=== PATIENT | male | born 1945 | race Caucasian/White ===

== ENCOUNTER 2020-09-06 11:43 | Emergency (ER) | payer MEDICARE, BC ==
[2020-09-06 11:53] VITALS: TEMP 98.6
[2020-09-06] MEDS ORDERED: ONDANSETRON 4 MG/2 ML VIAL IVP STA (12:35)
[2020-09-06] MEDS ORDERED: SODIUM CHLORIDE 0.9% 1,000 ML IV STA (12:35)
[2020-09-06 13:14] VITALS: RESP 18
[2020-09-06 13:26] LABS: Basophils # (A) 0.1 k/uL (0-0.2); Basophils % (A) 1 %; Eosinophils # (A) 0.2 k/uL (0-0.7); Eosinophils % (A) 1 %; HGB 15.4 gm/dL (13.0-17.5); Lymphocytes % (A) 8 %; MCH 29.6 pg (25.0-35.0); MCHC 32.1 g/dL (31.0-37.0); MCV 92.1 fL (80.0-100.0); Mean Platelet Volume 7.2; Monocytes # (A) 0.9 k/uL (0-1.0); Monocytes % (A) 6 %; Neutrophils # (A) 11.6 k/uL (1.3-7.7); Neutrophils % (A) 83 %; Platelet Count 347 k/uL (150-450); RBC 5.21 m/uL (4.30-5.90); RDW 13.3 % (11.5-15.5); WBC 13.9 k/uL (3.8-10.6)
--- NOTE | 2020-09-06 13:32 | ED ---
Nausea/Vomiting/Diarrhea HPI - General Chief complaint: Nausea/Vomiting/Diarrhea Stated complaint: Weakness/diarrhea Time Seen by Provider: 09/06/20 12:07 Source: patient, family Mode of arrival: wheelchair Limitations: no limitations - History of Present Illness Initial comments: Patient is a 74-year-old male with past medical history of chronic back pain recently placed on buprenorphen who presents to the emergency department for nausea and diarrhea. Patient states that his symptoms started approximately one week ago and have been getting progressively worse. He has had generalized body aches. He was seen at [facility] Wednesday for same complaint. Evaluation was performed and was negative. He was sent home. No medication ch anges other then he stopped the buprenorphen 2 days ago. Yesterday the patient began having diarrhea. States he had a bowel movement once per hour. Denies bloody diarrhea. Denies any sick contacts as other symptoms. No tainted foods. Denies a cough or chest pain. Has mild generalized abdominal pain. No history with colitis or inflammatory bowel disease. No other alleviating or modifying f actors - Related Data Home Medications Medication Instructions Recorded Confirmed Buprenorphine HCl [Belbuca] 300 mcg BC BID 09/06/20 09/06/20 Buprenorphine [Butrans 20 MCG/HOUR] 1 patch TRANSDERM Q7D 09/06/20 09/06/20 Clopidogrel [Plavix] 75 mg PO DAILY 09/06/20 09/06/20 Melatonin Gummies 30 mg PO HS 09/06/20 09/06/20 Metoprolol Tartrate [Lopressor] 50 mg PO BID 09/06/20 09/06/20 NIFEdipine [Procardia XL] 90 mg PO DAILY 09/06/20 09/06/20 Pravastatin Sodium [Pravachol] 80 mg PO HS 09/06/20 09/06/20 Sertraline [Zoloft] 100 mg PO BID 09/06/20 09/06/20 buPROPion HCL [Wellbutrin SR] 150 mg PO Q12H 09/06/20 09/06/20 busPIRone HCl [Buspar] 30 mg PO BID 09/06/20 09/06/20 hydrALAZINE HCL [Apresoline] 100 mg PO BID 09/06/20 09/06/20 traZODone HCL [TraZODone HCl] 50 mg PO HS 09/06/20 09/06/20 Previous Rx's Medication Instructions Recorded Dicyclomine [Bentyl] 20 mg PO TID PRN #30 tablet 09/06/20 Allergies Allergy/AdvReac Type Severity Reaction Status Date / Time atorvastatin [From Lipitor] Allergy muscle Verified 09/06/20 13:23 pains Review of Systems ROS Statement: Those systems with pertinent positive or pertinent negative responses have been documented in the HPI. ROS Other: All systems not noted in ROS Statement are negative. Past Medical History Past Medical History: Hypertension, Renal Disease History of Any Multi-Drug Resistant Organisms: None Reported Past Surgical History: Back Surgery Past Psychological History: Depression Smoking Status: Former smoker Past Alcohol Use History: None Reported Past Drug Use History: None Reported General Exam Limitations: no limitations Course Vital Signs 09/06/20 09/06/20 09/06/20 11:47 13:12 15:52 Temperature 98.6 F 98.6 F Pulse Rate 76 67 77 Respiratory 20 18 18 Rate Blood Pressure 165/83 154/82 125/82 O2 Sat by Pulse 95 96 94 L Oximetry Medical Decision Making - Medical Decision Making Upon arrival patient is placed into room 7. A thorough history and physical exam was performed. Peripheral IV is established her patient is given a liter bolus of normal saline, 4 mg of Zofran. I did recommend laboratory studies, urinalysis and stool studies. Patient is unable to have a bowel movement while in the emergency department. Laboratory studies demonstrate a creatinine of 1.6. Nothing previous to compare to. White blood cell count of 13.9. Urinalysis is negative. CT the patient's abdomen and pelvis demonstrates signs of enteritis with fluid-filled loops of small bowel. Some thickening present within the duodenum. Chest x-ray was also performed which demonstrates some scattered mild peribronchial cuffing which could reflect bronchitis or asthma. The results are discussed with the patient. States he does feel improved at this time. He is given a dose of Bentyl for abdominal cramping. I did recommend hospital admission however the patient would prefer to go home at this time. The patient will follow up with his primary care doctor in 2-4 days. Ret urn to the emergency department for any new or worsening symptoms. Encourage by mouth intake. The patient understood this. He was then discharged home in stable condition - Lab Data Result diagrams: 09/06/20 13:16 09/06/20 13:16 Lab Results 09/06/20 09/06/20 09/06/20 Range/Units 13:16 13:16 13:16 WBC 13.9 H (3.8-10.6) k/uL RBC 5.21 (4.30-5.90) m/uL Hgb 15.4 (13.0-17.5) gm/dL Hct 48.0 (39.0-53.0) % MCV 92.1 (80.0-100.0) fL MCH 29.6 (25.0-35.0) pg MCHC 32.1 (31.0-37.0) g/dL RDW 13.3 (11.5-15.5) % Plt Count 347 (150-450) k/uL Neutrophils % 83 % Lymphocytes % 8 % Monocytes % 6 % Eosinophils % 1 % Basophils % 1 % Neutrophils # 11.6 H (1.3-7.7) k/uL Lymphocytes # 1.0 (1.0-4.8) k/uL Monocytes # 0.9 (0-1.0) k/uL Eosinophils # 0.2 (0-0.7) k/uL Basophils # 0.1 (0-0.2) k/uL Sodium 136 L (137-145) mmol/L Potassium 4.3 (3.5-5.1) mmol/L Chloride 107 (98-107) mmol/L Carbon Dioxide 20 L (22-30) mmol/L Anion Gap 9 mmol/L BUN 26 H (9-20) mg/dL Creatinine 1.64 H (0.66-1.25) mg/dL Est GFR (CKD-EPI)AfAm 48 (>60 ml/min/1.73 sqM) Est GFR (CKD-EPI)NonAf 41 (>60 ml/min/1.73 sqM) Glucose 111 H (74-99) mg/dL Plasma Lactic Acid Ugo 0.9 (0.7-2.0) mmol/L Calcium 9.4 (8.4-10.2) mg/dL Magnesium 2.3 (1.6-2.3) mg/dL Total Bilirubin 0.5 (0.2-1.3) mg/dL AST 25 (17-59) U/L ALT 17 (4-49) U/L Alkaline Phosphatase 87 (38-126) U/L Creatine Kinase 88 (55-170) U/L Total Protein 6.8 (6.3-8.2) g/dL Albumin 4.0 (3.5-5.0) g/dL Lipase 105 (23-300) U/L Urine Color Urine Appearance (Clear) Urine pH (5.0-8.0) Ur Specific [employer] (1.001-1.035) Urine Protein (Negative) Urine Glucose (UA) (Negative) Urine Ketones (Negative) Urine Blood (Negative) Urine Nitrite (Negative) Urine Bilirubin (Negative) Urine Urobilinogen (<2.0) mg/dL Ur Leukocyte Esterase (Negative) 09/06/20 Range/Units 14:36 WBC (3.8-10.6) k/uL RBC (4.30-5.90) m/uL Hgb (13.0-17.5) gm/dL Hct (39.0-53.0) % MCV (80.0-100.0) fL MCH (25.0-35.0) pg MCHC (31.0-37.0) g/dL RDW (11.5-15.5) % Plt Count (150-450) k/uL Neutrophils % % Lymphocytes % % Monocytes % % Eosinophils % % Basophils % % Neutrophils # (1.3-7.7) k/uL Lymphocytes # (1.0-4.8) k/uL Monocytes # (0-1.0) k/uL Eosinophils # (0-0.7) k/uL Basophils # (0-0.2) k/uL Sodium (137-145) mmol/L Potassium (3.5-5.1) mmol/L Chloride (98-107) mmol/L Carbon Dioxide (22-30) mmol/L Anion Gap mmol/L BUN (9-20) mg/dL Creatinine (0.66-1.25) mg/dL Est GFR (CKD-EPI)AfAm (>60 ml/min/1.73 sqM) Est GFR (CKD-EPI)NonAf (>60 ml/min/1.73 sqM) Glucose (74-99) mg/dL Plasma Lactic Acid Ugo (0.7-2.0) mmol/L Calcium (8.4-10.2) mg/dL Magnesium (1.6-2.3) mg/dL Total Bilirubin (0.2-1.3) mg/dL AST (17-59) U/L ALT (4-49) U/L Alkaline Phosphatase (38-126) U/L Creatine Kinase (55-170) U/L Total Protein (6.3-8.2) g/dL Albumin (3.5-5.0) g/dL Lipase (23-300) U/L Urine Color Yellow Urine Appearance Clear (Clear) Urine pH 6.5 (5.0-8.0) Ur Specific [employer] 1.017 (1.001-1.035) Urine Protein Trace H (Negative) Urine Glucose (UA) Negative (Negative) Urine Ketones Negative (Negative) Urine Blood Negative (Negative) Urine Nitrite Negative (Negative) Urine Bilirubin Negative (Negative) Urine Urobilinogen <2.0 (<2.0) mg/dL Ur Leukocyte Esterase Negative (Negative) Disposition Clinical Impression: Dehydration, Diarrhea, Enteritis Disposition: HOME SELF-CARE Condition: Stable Instructions (If sedation given, give patient instructions): Acute Diarrhea (ED) Additional Instructions: Please follow-up with your primary care doctor in 2-4 days. Save a sample of your stool and take it to your doctor for testing. Increase fluid intake. Return to the emergency room for any new or worsening symptoms Prescriptions: Dicyclomine [Bentyl] 20 mg PO TID PRN #30 tablet PRN Reason: Diarrhea Is patient prescribed a controlled substance at d/c from ED?: No Referrals: Chaka Thomas DO [Primary Care Provider] - 1-2 days Time of Disposition: 15:40
[2020-09-06 13:37] LABS: Calcium 9.4 mg/dL (8.4-10.2); Magnesium 2.3 mg/dL (1.6-2.3); Potassium 4.3 mmol/L (3.5-5.1); Total Bilirubin 0.5 mg/dL (0.2-1.3); Total Protein 6.8 g/dL (6.3-8.2)
[2020-09-06 14:50] LABS: Appearance,Urine Clear (Clear); Bilirubin,Urine Negative (Negative); Blood,Urine Negative (Negative); Color,Urine Yellow; Glucose,Urine (UA) Negative (Negative); Ketones,Urine Negative (Negative); Leukocyte Esterase,Urine Negative (Negative); Nitrite,Urine Negative (Negative); PH, Urine 6.5 (5.0-8.0); Protein,Urine Trace (Negative); Specific Gravity,Urine 1.017 (1.001-1.035); Urobilinogen,Urine <2.0 mg/dL (<2.0)
--- NOTE | 2020-09-06 15:07 | XR ---
EXAMINATION TYPE: XR chest 2V DATE OF EXAM: 09/06/2020 COMPARISON: None HISTORY: 74-year-old male cough and pain TECHNIQUE: PA and lateral views FINDINGS: Heart upper limits of normal in size. Aorta and pulmonary vasculature within normal limits. Mild inte rstitial prominence as a chronic appearance. No bozena consolidation or pleural effusion. There is mil d peribronchial cuffing scattered throughout. IMPRESSION: Some scattered mild peribronchial cuffing could reflect bronchitis or asthma. Otherwise, no acute pro cess seen.
--- NOTE | 2020-09-06 15:08 | CT ---
EXAMINATION TYPE: CT abdomen pelvis w con DATE OF EXAM: 09/06/2020 COMPARISON: None HISTORY: Weakness with pelvic pain. CT DLP: 1251.5 mGycm Automated exposure control for dose reduction was used. TECHNIQUE: Helical acquisition of images from the lung bases through the pelvis have been completed. CONTRAST: Performed without Oral Contrast and with IV Contrast, patient injected with 80 mL of Isovue 300. FINDINGS: There are coronary artery calcifications. LUNG BASES: No significant abnormality is appreciated. Probable calcified nodule present medially in the right lower lobe on axial image #4, there is some emphysematous changes present, no pleural or pe ricardial effusion AORTA: Atheromatous changes are present with luminal plaque, mural calcification. LIVER/GB: Patient is post cholecystectomy.. PANCREAS: No significant abnormality is seen. SPLEEN: No significant abnormality is seen. ADRENALS: No significant abnormality is seen. KIDNEYS: No significant abnormality is seen. REPRODUCTIVE ORGANS: No significant abnormality is seen BOWEL: There are fluid-filled loops of small bowel present. Some thickening present within the duode num, distended loop of duodenum also noted. FREE AIR: No Free Air visible. ASCITES: None visible. PELVIC ADENOPATHY: None visualized. RETROPERITONEAL ADENOPATHY: No Retroperitoneal Adenopathy visible. URINARY BLADDER: Urinary bladder is not well-distended, there is wall thickening, difficult to exclud e cystitis or mucosal lesion OSSEOUS STRUCTURES: Postop changes are noted status post lumbar fusion L3-S1, intervertebral spacing blocks present at L5-S1, L4-5. There is streak artifact present. IMPRESSION: CORRELATE FOR ENTERITIS. ADDITIONAL FINDINGS ABOVE.
[2020-09-06] MEDS ORDERED: DICYCLOMINE 10 MG CAP PO STA (15:36)
[2020-09-06 15:54] VITALS: BP 125/82; PULSE 77
== END 2020-09-06 15:56 | disposition home or self-care (01) ==
LOC: EC 11:43
DX: K52.9 Noninfective gastroenteritis and colitis, unspecified (principal); E86.0 Dehydration; F32.9 Major depressive disorder, single episode, unspecified; I10 Essential (primary) hypertension; Z79.899 Other long term (current) drug therapy; Z88.8 Allergy status to other drugs, medicaments and biological substances; Z87.891 Personal history of nicotine dependence
CPT/HCPCS: 51798; 36415; 80053; 82550; 83605; 83690; 83735; 85025; 81003; 71046; 74177; 99285; 96374; 96361 ×2; J2405; Q9967

== ENCOUNTER 2020-09-07 08:09 | Observation (INO) | payer MEDICARE, BC ==
[2020-09-07] MEDS ORDERED: PANTOPRAZOLE 40 MG/10 ML VIAL IVP STA (08:34)
[2020-09-07] MEDS ORDERED: DICYCLOMINE 10 MG/ML 2 ML AMP IM STA (08:34)
[2020-09-07] MEDS ORDERED: SODIUM CHLORIDE 0.9% 1,000 ML IV STA ×2 (08:34)
--- NOTE | 2020-09-07 08:38 | ED ---
General Adult HPI - General Chief complaint: Nausea/Vomiting/Diarrhea Stated complaint: nausea/diarrhea Time Seen by Provider: 09/07/20 08:14 Source: patient, family, RN notes reviewed, old records reviewed Mode of arrival: wheelchair Limitations: no limitations - History of Present Illness Initial comments: Patient is a pleasant 74-year-old male presenting to the emergency Department with diarrhea. Onset of symptoms was a week ago. Symptoms have been waxing and waning. Patient did go to emergency department Wednesday and . Patient again went to the emergency department here yesterday. Patient did have computed tomography scan done showing enteritis. Patient states symptoms worsened again last night. Patient has had several episodes of diarrhea again. Patient has diffuse myalgias. Patient does have abdominal cramping as well. Patient has decreased appetite and is tolerating limited oral intake. Patient has some nausea without vomiting. No history of similar symptoms chronically. No fevers. No recent antibiotic use - Related Data Home Medications Medication Instructions Recorded Confirmed Buprenorphine HCl [Belbuca] 300 mcg BC BID 09/06/20 09/06/20 Buprenorphine [Butrans 20 MCG/HOUR] 1 patch TRANSDERM Q7D 09/06/20 09/06/20 Clopidogrel [Plavix] 75 mg PO DAILY 09/06/20 09/06/20 Melatonin Gummies 30 mg PO HS 09/06/20 09/06/20 Metoprolol Tartrate [Lopressor] 50 mg PO BID 09/06/20 09/06/20 NIFEdipine [Procardia XL] 90 mg PO DAILY 09/06/20 09/06/20 Pravastatin Sodium [Pravachol] 80 mg PO HS 09/06/20 09/06/20 Sertraline [Zoloft] 100 mg PO BID 09/06/20 09/06/20 buPROPion HCL [Wellbutrin SR] 150 mg PO Q12H 09/06/20 09/06/20 busPIRone HCl [Buspar] 30 mg PO BID 09/06/20 09/06/20 hydrALAZINE HCL [Apresoline] 100 mg PO BID 09/06/20 09/06/20 traZODone HCL [TraZODone HCl] 50 mg PO HS 09/06/20 09/06/20 Previous Rx's Medication Instructions Recorded Dicyclomine [Bentyl] 20 mg PO TID PRN #30 tablet 09/06/20 Allergies Allergy/AdvReac Type Severity Reaction Status Date / Time atorvastatin [From Lipitor] Allergy muscle Verified 09/07/20 08:19 pains Review of Systems ROS Statement: Those systems with pertinent positive or pertinent negative responses have been documented in the HPI. ROS Other: All systems not noted in ROS Statement are negative. Constitutional: Denies: fever Eyes: Denies: eye pain ENT: Denies: ear pain Respiratory: Denies: cough Cardiovascular: Denies: chest pain Endocrine: Reports: fatigue Gastrointestinal: Reports: nausea, diarrhea. Denies: vomiting Genitourinary: Denies: dysuria Musculoskeletal: Denies: back pain Skin: Denies: rash Neurological: Denies: weakness Past Medical History Past Medical History: COPD, CVA/TIA, Hyperlipidemia, Hypertension, Renal Disease Additional Past Medical History / Comment(s): back pain History of Any Multi-Drug Resistant Organisms: None Reported Past Surgical History: Back Surgery Additional Past Surgical History / Comment(s): hemorroidectomy Past Psychological History: Depression Smoking Status: Current every day smoker Past Alcohol Use History: None Reported Past Drug Use History: None Reported General Exam Limitations: no limitations General appearance: alert Head exam: Present: normocephalic Eye exam: Present: normal appearance ENT exam: Present: mucous membranes dry Neck exam: Present: normal inspection Respiratory exam: Present: normal lung sounds bilaterally Cardiovascular Exam: Present: regular rate, normal rhythm GI/Abdominal exam: Present: soft, hyperactive bowel sounds. Absent: distended, tenderness, guarding, rebound, rigid, pulsatile mass Extremities exam: Present: normal inspection Neurological exam: Present: alert Psychiatric exam: Present: normal affect, normal mood Skin exam: Present: normal color Course Vital Signs 09/07/20 08:14 Temperature 98.3 F Pulse Rate 75 Respiratory 18 Rate Blood Pressure 137/73 O2 Sat by Pulse 96 Oximetry Medical Decision Making - Medical Decision Making Patient reevaluated and not feeling much better. Patient and family updated on results and plan. Dr. Kay has been paged for admission covering for hospital call. Case was discussed with Dr. Bowie, who will admit. - Lab Data Result diagrams: 09/07/20 08:42 09/07/20 08:42 Lab Results 09/07/20 09/07/20 Range/Units 08:42 08:42 WBC 14.9 H (3.8-10.6) k/uL RBC 5.11 (4.30-5.90) m/uL Hgb 15.3 (13.0-17.5) gm/dL Hct 46.9 (39.0-53.0) % MCV 91.7 (80.0-100.0) fL MCH 30.0 (25.0-35.0) pg MCHC 32.7 (31.0-37.0) g/dL RDW 13.4 (11.5-15.5) % Plt Count 350 (150-450) k/uL Neutrophils % 83 % Lymphocytes % 9 % Monocytes % 5 % Eosinophils % 1 % Basophils % 1 % Neutrophils # 12.3 H (1.3-7.7) k/uL Lymphocytes # 1.4 (1.0-4.8) k/uL Monocytes # 0.8 (0-1.0) k/uL Eosinophils # 0.1 (0-0.7) k/uL Basophils # 0.1 (0-0.2) k/uL Sodium 137 (137-145) mmol/L Potassium 4.1 (3.5-5.1) mmol/L Chloride 108 H (98-107) mmol/L Carbon Dioxide 21 L (22-30) mmol/L Anion Gap 8 mmol/L BUN 22 H (9-20) mg/dL Creatinine 1.52 H (0.66-1.25) mg/dL Est GFR (CKD-EPI)AfAm 52 (>60 ml/min/1.73 sqM) Est GFR (CKD-EPI)NonAf 45 (>60 ml/min/1.73 sqM) Glucose 124 H (74-99) mg/dL Calcium 9.4 (8.4-10.2) mg/dL Total Bilirubin 0.5 (0.2-1.3) mg/dL AST 25 (17-59) U/L ALT 16 (4-49) U/L Alkaline Phosphatase 83 (38-126) U/L Total Protein 6.7 (6.3-8.2) g/dL Albumin 3.9 (3.5-5.0) g/dL Amylase 57 (30-110) U/L Lipase 98 (23-300) U/L Disposition Clinical Impression: Diarrhea, Dehydration Disposition: ADMITTED IP TO THIS [facility] Is patient prescribed a controlled substance at d/c from ED?: No Decision Time: 09:29
[2020-09-07 08:50] LABS: Basophils # (A) 0.1 k/uL (0-0.2); Basophils % (A) 1 %; Eosinophils # (A) 0.1 k/uL (0-0.7); Eosinophils % (A) 1 %; HCT 46.9 % (39.0-53.0); HGB 15.3 gm/dL (13.0-17.5); Lymphocytes # (A) 1.4 k/uL (1.0-4.8); Lymphocytes % (A) 9 %; MCHC 32.7 g/dL (31.0-37.0); MCV 91.7 fL (80.0-100.0); Monocytes # (A) 0.8 k/uL (0-1.0); Monocytes % (A) 5 %; Neutrophils # (A) 12.3 k/uL (1.3-7.7); Neutrophils % (A) 83 %; Platelet Count 350 k/uL (150-450); RBC 5.11 m/uL (4.30-5.90); RDW 13.4 % (11.5-15.5); WBC 14.9 k/uL (3.8-10.6)
[2020-09-07 09:01] LABS: Albumin 3.9 g/dL (3.5-5.0); Calcium 9.4 mg/dL (8.4-10.2); Potassium 4.1 mmol/L (3.5-5.1); Total Bilirubin 0.5 mg/dL (0.2-1.3); Total Protein 6.7 g/dL (6.3-8.2)
[2020-09-07] MEDS ORDERED: ONDANSETRON 4 MG/2 ML VIAL IVP PRN (09:29)
[2020-09-07] MEDS ORDERED: NALOXONE 0.4 MG/ML 1 ML VIAL IV PRN (09:29)
[2020-09-07] MEDS ORDERED: SODIUM CHLORIDE 0.9% 1,000 ML IV SCH (09:30)
[2020-09-07 10:07] VITALS: RESP 20
[2020-09-07 10:47] VITALS: BP 163/73; PULSE 73; TEMP 98
[2020-09-07] MEDS ORDERED: SODIUM CHLORIDE 0.9% 1,000 ML IV ONE ×2 (13:33→13:42)
--- NOTE | 2020-09-07 13:53 | P.HPIM ---
History of Present Illness 74-year-old male presenting to the emergency Department with diarrhea. Onset of symptoms was a week ago. Symptoms have been waxing and waning. Patient did go to emergency department Wednesday and . Patient again went to the emergency department here yesterday. Patient did have computed tomography scan done showing enteritis. Patient states symptoms worsened again last night. Patient has had several episodes of diarrhea again. Patient has diffuse myalgias. Patient does have abdominal cramping as well. Patient has decreased appetite and is tolerating limited oral intake. Patient has some nausea without vomiting. No history of similar symptoms chronically. No fevers. No recent antibiotic use. Patient is found to be in acute renal failure which improved with IV fluids but still has elevated serum creatinine. Patient's symptoms of diarrhea nausea vomiting resolved it appears to have viral gastroenteritis clinically doing well will be discharged today as he wanted to go home after giving him another bolus of IV fluids. Review of Systems REVIEW OF SYSTEMS: CONSTITUTIONAL: No fever, no malaise, no fatigue. HEENT: No recent visual problems or hearing problems. Denied any sore throat. CARDIOVASCULAR: No chest pain, orthopnea, PND, no palpitations, no syncope. PULMONARY: No shortness of breath, no cough, no hemoptysis. GASTROINTESTINAL: As mentioned in HPI NEUROLOGICAL: No headaches, no weakness, no numbness. HEMATOLOGICAL: Denies any bleeding or petechiae. GENITOURINARY: Denies any burning micturition, frequency, or urgency. MUSCULOSKELETAL/RHEUMATOLOGICAL: Denies any joint pain, swelling, or any muscle pain. ENDOCRINE: Denies any polyuria or polydipsia. The rest of the 14-point review of systems is negative. Past Medical History Past Medical History: CVA/TIA, Hyperlipidemia, Hypertension, Renal Disease Additional Past Medical History / Comment(s): back pain History of Any Multi-Drug Resistant Organisms: None Reported Past Surgical History: Back Surgery Additional Past Surgical History / Comment(s): hemorroidectomy Past Anesthesia/Blood Transfusion Reactions: No Reported Reaction Past Psychological History: Anxiety, Depression Smoking Status: Current every day smoker Past Alcohol Use History: None Reported Past Drug Use History: None Reported Medications and Allergies Home Medications Medication Instructions Recorded Confirmed Type Clopidogrel [Plavix] 75 mg PO HS 09/06/20 09/07/20 History Metoprolol Tartrate [Lopressor] 50 mg PO BID 09/06/20 09/07/20 History NIFEdipine [Procardia XL] 90 mg PO DAILY 09/06/20 09/07/20 History Pravastatin Sodium [Pravachol] 80 mg PO HS 09/06/20 09/07/20 History Sertraline [Zoloft] 100 mg PO BID 09/06/20 09/07/20 History buPROPion HCL [Wellbutrin SR] 150 mg PO BID 09/06/20 09/07/20 History busPIRone HCl [Buspar] 30 mg PO BID 09/06/20 09/07/20 History hydrALAZINE HCL [Apresoline] 100 mg PO BID 09/06/20 09/07/20 History traZODone HCL 50 mg PO HS 09/06/20 09/07/20 History Buprenorphine HCl [Belbuca] 300 mcg BC 09/07/20 History Omeprazole Magnesium [PriLOSEC OTC] 20 mg PO DAILY 09/07/20 09/07/20 History Allergies Allergy/AdvReac Type Severity Reaction Status Date / Time atorvastatin [From Lipitor] Allergy muscle Verified 09/07/20 10:07 pains Physical Exam Vitals: Vital Signs Temp Pulse Pulse Resp BP BP Pulse Ox 09/07/20 10:46 98.0 F 73 163/73 96 09/07/20 10:06 82 20 111/67 95 09/07/20 08:14 98.3 F 75 18 137/73 96 Intake and Output 09/06/20 09/07/20 09/07/20 22:59 06:59 14:59 Other: # Voids 1 # Bowel Movements 1 Weight 87.09 kg PHYSICAL EXAMINATION: GENERAL: The patient is alert and oriented x3, not in any acute distress. Well developed, well nourished. HEENT: Pupils are round and equally reacting to light. EOMI. No scleral icterus. No conjunctival pallor. Normocephalic, atraumatic. No pharyngeal erythema. No thyromegaly. CARDIOVASCULAR: S1 and S2 present. No murmurs, rubs, or gallops. PULMONARY: Chest is clear to auscultation, no wheezing or crackles. ABDOMEN: Soft, nontender, nondistended, normoactive bowel sounds. No palpable organomegaly. MUSCULOSKELETAL: No joint swelling or deformity. EXTREMITIES: No cyanosis, clubbing, or pedal edema. NEUROLOGICAL: Gross neurological examination did not reveal any focal deficits. SKIN: No rashes. Results CBC & Chem 7: 09/07/20 08:42 09/07/20 08:42 Labs: Abnormal Lab Results - Last 24 Hours (Table) 09/07/20 09/07/20 Range/Units 08:42 08:42 WBC 14.9 H (3.8-10.6) k/uL Neutrophils # 12.3 H (1.3-7.7) k/uL Chloride 108 H (98-107) mmol/L Carbon Dioxide 21 L (22-30) mmol/L BUN 22 H (9-20) mg/dL Creatinine 1.52 H (0.66-1.25) mg/dL Glucose 124 H (74-99) mg/dL Thrombosis Risk Factor Assmnt - Choose All That Apply Each Factor Represents 1 point: Obesity (BMI >25) Each Risk Factor Represents 2 Points: Age 61-74 years Thrombosis Risk Factor Assessment Total Risk Factor Score: 3 Thrombosis Risk Factor Assessment Level: Moderate Risk Assessment and Plan Plan: -Nausea vomiting diarrhea secondary to viral gastroenteritis symptoms resolved at this time -Severe dehydration and acute renal failure secondary to dehydration and prerenal azotemia secondary to dehydration received IV fluids will give him one more bolus of IV fluids and after that patient will be discharged -Hyperlipidemia Hypertension -CVAT in the past -Depression -Nicotine abuse: Counseling was provided
--- NOTE | 2020-09-07 13:58 | P.DS ---
Providers Date of admission: 09/07/20 09:29 Attending physician: Waldo Kay Primary care physician: Chaka Thomas Hospital Course: Please refer to HPI for further details Plan - Discharge Summary Discharge Rx Participant: No New Discharge Prescriptions: Continue traZODone HCL 50 mg PO HS busPIRone HCl [Buspar] 30 mg PO BID buPROPion HCL [Wellbutrin SR] 150 mg PO BID Sertraline [Zoloft] 100 mg PO BID Pravastatin Sodium [Pravachol] 80 mg PO HS Metoprolol Tartrate [Lopressor] 50 mg PO BID Clopidogrel [Plavix] 75 mg PO HS hydrALAZINE HCL [Apresoline] 100 mg PO BID NIFEdipine [Procardia XL] 90 mg PO DAILY Omeprazole Magnesium [PriLOSEC OTC] 20 mg PO DAILY Buprenorphine HCl [Belbuca] 300 mcg BC Discharge Medication List Clopidogrel [Plavix] 75 mg PO HS 09/06/20 [History] Metoprolol Tartrate [Lopressor] 50 mg PO BID 09/06/20 [History] NIFEdipine [Procardia XL] 90 mg PO DAILY 09/06/20 [History] Pravastatin Sodium [Pravachol] 80 mg PO HS 09/06/20 [History] Sertraline [Zoloft] 100 mg PO BID 09/06/20 [History] buPROPion HCL [Wellbutrin SR] 150 mg PO BID 09/06/20 [History] busPIRone HCl [Buspar] 30 mg PO BID 09/06/20 [History] hydrALAZINE HCL [Apresoline] 100 mg PO BID 09/06/20 [History] traZODone HCL 50 mg PO HS 09/06/20 [History] Buprenorphine HCl [Belbuca] 300 mcg 09/07/20 [History] Omeprazole Magnesium [PriLOSEC OTC] 20 mg PO DAILY 09/07/20 [History] Follow up Appointment(s)/Referral(s): Chaka Thomas DO [Primary Care Provider] - 3 Days Discharge Disposition: HOME SELF-CARE
[2020-09-07] MEDS ORDERED: CLOPIDOGREL 75 MG TAB PO SCH (21:00)
[2020-09-07] MEDS ORDERED: PRAVASTATIN SODIUM 80 MG TAB PO SCH (21:00)
[2020-09-07] MEDS ORDERED: traZODone HCL 50 MG TAB PO SCH (21:00)
[2020-09-07] MEDS ORDERED: buPROPion SR 150 MG TABLET.ER PO SCH (21:00)
[2020-09-07] MEDS ORDERED: METOPROLOL TARTRATE 50 MG TAB PO SCH (21:00)
[2020-09-07] MEDS ORDERED: SERTRALINE 100 MG TAB PO SCH (21:00)
[2020-09-07] MEDS ORDERED: busPIRone HCl 10 MG TAB PO SCH (21:00)
[2020-09-07] MEDS ORDERED: hydrALAZINE HCL 50 MG TAB PO SCH (21:00)
[2020-09-08] MEDS ORDERED: PANTOPRAZOLE 40 MG TABLET PO SCH (07:30)
[2020-09-08] MEDS ORDERED: NIFEdipine XL 90 MG TAB.ER.24 PO SCH (09:00)
[2020-09-08] MEDS ORDERED: PANTOPRAZOLE 40 MG/10 ML VIAL IV SCH (09:00)
== END 2020-09-07 15:07 | disposition home or self-care (01) ==
LOC: EC 08:09 → 1SOBS 09:29
PROVIDERS: ADMIT Hospitalist; ATTEND Hospitalist
DX: E86.0 Dehydration (principal); N17.9 Acute kidney failure, unspecified; A08.4 Viral intestinal infection, unspecified; E78.5 Hyperlipidemia, unspecified; F17.200 Nicotine dependence, unspecified, uncomplicated; F32.9 Major depressive disorder, single episode, unspecified; F41.9 Anxiety disorder, unspecified; I10 Essential (primary) hypertension; J44.9 Chronic obstructive pulmonary disease, unspecified; Z79.02 Long term (current) use of antithrombotics/antiplatelets; Z79.899 Other long term (current) drug therapy; Z86.73 Personal history of transient ischemic attack (TIA), and cerebral infarction without residual deficits
CPT/HCPCS: 96361; 96372; 96374; 99285; 36415; 80053; 82150; 83690; 85025; G0378; J0500; C9113

== ENCOUNTER 2022-01-13 12:39 | Emergency (ER) | payer MEDICARE, BC ==
[2022-01-13 13:02] VITALS: BP 135/70; PULSE 66; RESP 16; TEMP 97.9
--- NOTE | 2022-01-13 13:40 | XR ---
EXAMINATION TYPE: XR chest 2V DATE OF EXAM: 01/13/2022 COMPARISON: Chest x-ray September 06, 2020 HISTORY: Weakness. TECHNIQUE: Frontal and lateral views of the chest are obtained. FINDINGS: There is mild chronic parenchymal change without suspicious focal air space opacity, pleur al effusion, or pneumothorax seen. The cardiac silhouette size remains within normal limits. The o sseous structures are intact. IMPRESSION: Chronic changes without acute pulmonary process.
[2022-01-13] MEDS ORDERED: MORPHINE SULFATE 2 MG/ML SYRINGE IVP STA (14:54)
[2022-01-13] MEDS ORDERED: ONDANSETRON 4 MG/2 ML VIAL IVP STA (14:54)
[2022-01-13] MEDS ORDERED: SODIUM CHLORIDE 0.9% 1,000 ML IV STA (14:56)
--- NOTE | 2022-01-13 15:03 | ED ---
General Adult HPI - General Chief complaint: Nausea/Vomiting/Diarrhea Stated complaint: Diarrhea Time Seen by Provider: 01/13/22 14:42 Source: patient Mode of arrival: EMS Limitations: no limitations - History of Present Illness Initial comments: This 76-year-old male with the past medical history of ulcer diesase in his past, CVA/TIA, hyperlipidemia, hypertension and kidney disease presents to the emergency department with abdominal pain 1 month, worsening over the last couple of days. Patient states he has been having generalized abdominal discom fort for the last month and over the last 3 weeks he has been experiencing about 6 total episodes of nonbloody diarrhea. Patient states over the last couple of days he has been experiencing episodes of nausea, body aches, and an abdominal dull headache with his abdominal pain worsening. Patient states he has been taking an [id number] antiacid medication for the last month which seems to help a little bit. Patient states he does have a history of abdominal ulcers but states he has not had his ulcers checked for years. Patient states he also has a history of chronic back/shoulder muscle strain of right side and states he was given Flexeril in his past which seems to help his pain. Patient states he used to see a chiropractor but has not seen one with Covid and also has noticed his right shoulder muscle hurting on and off, dull/aching especially when he pushes area or moves his arm/back a certain way over the last couple weeks. Patient is unsure when his last colonoscopy was, however he states that it has been within the last 10 years. Patient states he used to take medication for his ulcers, however he doesn't take them anymore and is unsure what they were. Patient denies any chest pain, fever, shortness of breath, vomiting, visual changes, lightheadedness, dizziness, change in vision/blurred vision, change in bladder, bowel or bladder incontinence/retention, saddle anesthesia, pain/tingling radiating down extremities. Patient denies any hematochezia or hemoptysis. - Related Data Home Medications Medication Instructions Recorded Confirmed Clopidogrel [Plavix] 75 mg PO DAILY 09/06/20 01/13/22 Metoprolol Tartrate [Lopressor] 50 mg PO BID-W/MEALS 09/06/20 01/13/22 NIFEdipine [Procardia XL] 90 mg PO DAILY 09/06/20 01/13/22 Pravastatin Sodium [Pravachol] 80 mg PO DAILY 09/06/20 01/13/22 Sertraline [Zoloft] 100 mg PO DAILY 09/06/20 01/13/22 buPROPion HCL [Wellbutrin SR] 150 mg PO BID 09/06/20 01/13/22 busPIRone HCl [Buspar] 30 mg PO BID 09/06/20 01/13/22 hydrALAZINE HCL [Apresoline] 100 mg PO BID-W/MEALS 09/06/20 01/13/22 traZODone HCL 50 mg PO HS 09/06/20 01/13/22 Aspirin EC [Ecotrin Low Dose] 81 mg PO DAILY 01/13/22 01/13/22 Previous Rx's Medication Instructions Recorded Cyclobenzaprine [Flexeril] 10 mg PO HS 5 Days #5 tab 01/13/22 Omeprazole 20 mg PO BID #28 tab 01/13/22 Tamsulosin HCl [Flomax] 0.4 mg PO DAILY #7 cap 01/13/22 Allergies Allergy/AdvReac Type Severity Reaction Status Date / Time atorvastatin [From Lipitor] AdvReac muscle Verified 01/13/22 15:25 pains Review of Systems ROS Statement: Those systems with pertinent positive or pertinent negative responses have been documented in the HPI. ROS Other: All systems not noted in ROS Statement are negative. Past Medical History Past Medical History: CVA/TIA, Hyperlipidemia, Hypertension, Renal Disease Additional Past Medical History / Comment(s): back pain History of Any Multi-Drug Resistant Organisms: None Reported Past Surgical History: Back Surgery Additional Past Surgical History / Comment(s): hemorroidectomy Past Anesthesia/Blood Transfusion Reactions: No Reported Reaction Past Psychological History: Anxiety, Depression Smoking Status: Current every day smoker Past Alcohol Use History: None Reported Past Drug Use History: None Reported General Exam Limitations: no limitations General appearance: alert, in no apparent distress Head exam: Present: atraumatic, normocephalic Eye exam: Present: normal appearance, PERRL, EOMI ENT exam: Present: mucous membranes moist Neck exam: Present: full ROM Respiratory exam: Present: normal lung sounds bilaterally. Absent: respiratory distress, wheezes, rales, rhonchi, stridor Cardiovascular Exam: Present: regular rate, normal rhythm, normal heart sounds. Absent: systolic murmur, diastolic murmur, rubs, gallop, clicks GI/Abdominal exam: Present: soft, tenderness (Diffuse tenderness in all quadrants, worse above umbilicus), normal bowel sounds. Absent: distended, guarding, rebound, rigid Extremities exam: Present: full ROM Back exam: Present: normal inspection, paraspinal tenderness (Right proximal thoracic/lower shoulder paraspinal tenderness to palpation. No bruising, erythema, warmth, abscess or drainage from area. Patient states he a pulled muscle there in past and states he thinks he pulled his muscle due to a hurting with certain movements and touching the area.). Absent: CVA tenderness (R), CVA tenderness (L), vertebral tenderness Neurological exam: Present: alert, oriented X3, CN II-XII intact, normal gait Psychiatric exam: Present: normal affect, normal mood Skin exam: Present: warm, dry, intact, normal color. Absent: rash Course Vital Signs 01/13/22 12:59 Temperature 97.9 F Pulse Rate 66 Respiratory 16 Rate Blood Pressure 135/70 O2 Sat by Pulse 99 Oximetry - Reevaluation(s) Reevaluation #1: 01/13/22 16:40 On reevaluation patient, patient states his headache is improved, however it is still there slightly. Patient also states he has a pulled muscle in his right thoracic back which she was prescribed Flexeril at home for. Patient states if he twists or bends the wrong way he still notices the pain. Patient did have slight tenderness to right proximal thoracic paraspinal area to palpation, patient was given lidocaine patch 01/13/22 17:15 Patient states his shoulder pain has significant improvement after the lidocaine patch was applied. Patient states he still has a little bit of a headache but is not very bad. Patient is requesting to go home stating he is no longer nauseous and does not have any abdominal pain. Patient states he no longer feels like he is having body aches. 01/13/22 17:50 And reevaluation, patient is sitting up in his bed, requesting to go home. Patient states he no longer has any symptoms. Patient denies any nausea, abdominal pain or headache. Patient states he'll follow up with his primary care provider in the next couple of days and states he'll return to the emergency department with any new or worsening symptoms. Patient agrees to follow up with [facility] furniture c[facility] if his abdominal pain returns. I did discuss possible colonoscopy or endoscopy since he is unsure of when his last colonoscopy was a states it was greater than 5 years ago. Patient was instructed to take the omeprazole given him to discontinue his anti-acid medication. Computed tomography scan did reveal left kidney stone and patient was given Flomax. EKG Findings - EKG Comments: EKG Findings:: EKG: Sinus rhythm. Ventricular rate 64 bpm. HI interval 173. Frustration 121. QT/QTc 422/431 Medical Decision Making - Medical Decision Making This 76-year-old male presents emergency Department with episodic abdominal pain, diarrhea, headache, congestion, nausea x 1month. Chest x-ray impression: Chronic changes without any acute pulmonary process. Mild chronic parenchymal changes without suspicious focal airspace opacity, pleural effusion or pneumothorax seen. Cardiac silhouette size remains within normal limits. Osseous structures are intact. CT impression: No acute abnormality of the abdomen and pelvis. Atherosclerotic mild vascular disease. Nonobstructing 2 mm posterior left renal calculus. No adverse change compared to old exam. Labs with white blood cells 11.9, BUN 34, creatinine 1.68, lipase 519. Coronavirus negative. After fluids, pain medication and nausea medication, patient states he does feel significant improvement. Patient was requesting to be discharged from the hospital. Patient denies any headache, body aches, nausea, abdominal pain prior to discharge and states he'll return if any of the symptoms return. Patient instructed to follow up with his primary care provider next couple of days. I did discuss that he may need to get an endoscopy and will likely need a repeat colonoscopy since has been around 10 years since his last. Patient was given lidocaine patch to right upper back for his muscle strain and was given Flexeril for 5 days. Patient given omeprazole for 14 days. Patient was given Flomax for kidney stone- patient's vital stable and urine was clear, no fever or CVA tenderness. Patient instructed to follow up with GI if his abdominal pain r eturns. Strict return precautions were discussed. Patient verbally agreed to plan. Patient sent home in stable condition. Case discussed with my attending, Dr. Balderas. - Lab Data Result diagrams: 01/13/22 15:10 01/13/22 15:10 Lab Results 01/13/22 01/13/22 01/13/22 Range/Units 15:10 15:10 15:10 WBC 11.9 H (3.8-10.6) k/uL RBC 4.69 (4.30-5.90) m/uL Hgb 14.6 (13.0-17.5) gm/dL Hct 44.5 (39.0-53.0) % MCV 94.8 (80.0-100.0) fL MCH 31.2 (25.0-35.0) pg MCHC 32.9 (31.0-37.0) g/dL RDW 13.4 (11.5-15.5) % Plt Count 320 (150-450) k/uL MPV 7.6 Neutrophils % 74 % Lymphocytes % 14 % Monocytes % 8 % Eosinophils % 2 % Basophils % 1 % Neutrophils # 8.8 H (1.3-7.7) k/uL Lymphocytes # 1.7 (1.0-4.8) k/uL Monocytes # 0.9 (0-1.0) k/uL Eosinophils # 0.2 (0-0.7) k/uL Basophils # 0.1 (0-0.2) k/uL PT 11.0 (9.0-12.0) sec INR 1.0 (<1.2) APTT 27.1 (22.0-30.0) sec Sodium 139 (137-145) mmol/L Potassium 4.4 (3.5-5.1) mmol/L Chloride 108 H (98-107) mmol/L Carbon Dioxide 23 (22-30) mmol/L Anion Gap 8 mmol/L BUN 34 H (9-20) mg/dL Creatinine 1.68 H (0.66-1.25) mg/dL Est GFR (CKD-EPI)AfAm 46 (>60 ml/min/1.73 sqM) Est GFR (CKD-EPI)NonAf 40 (>60 ml/min/1.73 sqM) Glucose 101 H (74-99) mg/dL Plasma Lactic Acid Ugo (0.7-2.0) mmol/L Calcium 9.1 (8.4-10.2) mg/dL Total Bilirubin 0.4 (0.2-1.3) mg/dL AST 22 (17-59) U/L ALT 17 (4-49) U/L Alkaline Phosphatase 81 (38-126) U/L Troponin I (0.000-0.034) ng/mL Total Protein 7.0 (6.3-8.2) g/dL Albumin 4.2 (3.5-5.0) g/dL Lipase 519 H (23-300) U/L Urine Color Urine Appearance (Clear) Urine pH (5.0-8.0) Ur Specific [place] (1.001-1.035) Urine Protein (Negative) Urine Glucose (UA) (Negative) Urine Ketones (Negative) Urine Blood (Negative) Urine Nitrite (Negative) Urine Bilirubin (Negative) Urine Urobilinogen (<2.0) mg/dL Ur Leukocyte Esterase (Negative) Coronavirus (PCR) (Not Detectd) 01/13/22 01/13/22 01/13/22 Range/Units 15:10 15:57 16:55 WBC (3.8-10.6) k/uL RBC (4.30-5.90) m/uL Hgb (13.0-17.5) gm/dL Hct (39.0-53.0) % MCV (80.0-100.0) fL MCH (25.0-35.0) pg MCHC (31.0-37.0) g/dL RDW (11.5-15.5) % Plt Count (150-450) k/uL MPV Neutrophils % % Lymphocytes % % Monocytes % % Eosinophils % % Basophils % % Neutrophils # (1.3-7.7) k/uL Lymphocytes # (1.0-4.8) k/uL Monocytes # (0-1.0) k/uL Eosinophils # (0-0.7) k/uL Basophils # (0-0.2) k/uL PT (9.0-12.0) sec INR (<1.2) APTT (22.0-30.0) sec Sodium (137-145) mmol/L Potassium (3.5-5.1) mmol/L Chloride (98-107) mmol/L Carbon Dioxide (22-30) mmol/L Anion Gap mmol/L BUN (9-20) mg/dL Creatinine (0.66-1.25) mg/dL Est GFR (CKD-EPI)AfAm (>60 ml/min/1.73 sqM) Est GFR (CKD-EPI)NonAf (>60 ml/min/1.73 sqM) Glucose (74-99) mg/dL Plasma Lactic Acid Ugo 1.0 (0.7-2.0) mmol/L Calcium (8.4-10.2) mg/dL Total Bilirubin (0.2-1.3) mg/dL AST (17-59) U/L ALT (4-49) U/L Alkaline Phosphatase (38-126) U/L Troponin I <0.012 (0.000-0.034) ng/mL Total Protein (6.3-8.2) g/dL Albumin (3.5-5.0) g/dL Lipase (23-300) U/L Urine Color Urine Appearance (Clear) Urine pH (5.0-8.0) Ur Specific [place] (1.001-1.035) Urine Protein (Negative) Urine Glucose (UA) (Negative) Urine Ketones (Negative) Urine Blood (Negative) Urine Nitrite (Negative) Urine Bilirubin (Negative) Urine Urobilinogen (<2.0) mg/dL Ur Leukocyte Esterase (Negative) Coronavirus (PCR) Not Detected (Not Detectd) 01/13/22 Range/Units 17:17 WBC (3.8-10.6) k/uL RBC (4.30-5.90) m/uL Hgb (13.0-17.5) gm/dL Hct (39.0-53.0) % MCV (80.0-100.0) fL MCH (25.0-35.0) pg MCHC (31.0-37.0) g/dL RDW (11.5-15.5) % Plt Count (150-450) k/uL MPV Neutrophils % % Lymphocytes % % Monocytes % % Eosinophils % % Basophils % % Neutrophils # (1.3-7.7) k/uL Lymphocytes # (1.0-4.8) k/uL Monocytes # (0-1.0) k/uL Eosinophils # (0-0.7) k/uL Basophils # (0-0.2) k/uL PT (9.0-12.0) sec INR (<1.2) APTT (22.0-30.0) sec Sodium (137-145) mmol/L Potassium (3.5-5.1) mmol/L Chloride (98-107) mmol/L Carbon Dioxide (22-30) mmol/L Anion Gap mmol/L BUN (9-20) mg/dL Creatinine (0.66-1.25) mg/dL Est GFR (CKD-EPI)AfAm (>60 ml/min/1.73 sqM) Est GFR (CKD-EPI)NonAf (>60 ml/min/1.73 sqM) Glucose (74-99) mg/dL Plasma Lactic Acid Ugo (0.7-2.0) mmol/L Calcium (8.4-10.2) mg/dL Total Bilirubin (0.2-1.3) mg/dL AST (17-59) U/L ALT (4-49) U/L Alkaline Phosphatase (38-126) U/L Troponin I (0.000-0.034) ng/mL Total Protein (6.3-8.2) g/dL Albumin (3.5-5.0) g/dL Lipase (23-300) U/L Urine Color Yellow Urine Appearance Clear (Clear) Urine pH 5.5 (5.0-8.0) Ur Specific [place] 1.019 (1.001-1.035) Urine Protein Negative (Negative) Urine Glucose (UA) Negative (Negative) Urine Ketones Negative (Negative) Urine Blood Negative (Negative) Urine Nitrite Negative (Negative) Urine Bilirubin Negative (Negative) Urine Urobilinogen <2.0 (<2.0) mg/dL Ur Leukocyte Esterase Negative (Negative) Coronavirus (PCR) (Not Detectd) Disposition Clinical Impression: Abdominal pain, Muscle strain of upper back, Kidney stone on left side Disposition: HOME SELF-CARE Condition: Stable Instructions (If sedation given, give patient instructions): Abdominal Pain (ED), Kidney Stones (ED), Muscle Strain (ED) Additional Instructions: Please follow-up with your primary care provider in next 24-48 hours- discuss your abdominal pain along with him setting up with somebody to see for colonoscopy/endoscopy for abdominal pain. Follow-up with gastroenterology if no improvement with abdominal discomfort in the next 5-7 of days. Return to the emergency department with any new, worsening, or concerning symptoms. Take Flexeril as directed for back muscle strain. Take omeprazole for abdominal pain until you follow up with your primary care provider in next couple days. Take Flomax as directed for kidney stone. Prescriptions: Cyclobenzaprine [Flexeril] 10 mg PO HS 5 Days #5 tab Tamsulosin HCl [Flomax] 0.4 mg PO DAILY #7 cap Omeprazole 20 mg PO BID #28 tab Is patient prescribed a controlled substance at d/c from ED?: No Referrals: Chaka Thomas DO [Primary Care Provider] - 1-2 days Kindra Alves MD [STAFF PHYSICIAN] - 1-2 days Decision Time: 17:54
[2022-01-13] MEDS ORDERED: FAMOTIDINE 20 MG/2 ML VIAL IV STA (15:19)
[2022-01-13 15:30] LABS: Basophils # (A) 0.1 k/uL (0-0.2); Basophils % (A) 1 %; Eosinophils # (A) 0.2 k/uL (0-0.7); Eosinophils % (A) 2 %; HCT 44.5 % (39.0-53.0); HGB 14.6 gm/dL (13.0-17.5); Lymphocytes # (A) 1.7 k/uL (1.0-4.8); Lymphocytes % (A) 14 %; MCH 31.2 pg (25.0-35.0); MCHC 32.9 g/dL (31.0-37.0); MCV 94.8 fL (80.0-100.0); Mean Platelet Volume 7.6; Monocytes # (A) 0.9 k/uL (0-1.0); Monocytes % (A) 8 %; Neutrophils # (A) 8.8 k/uL (1.3-7.7); Neutrophils % (A) 74 %; Platelet Count 320 k/uL (150-450); RBC 4.69 m/uL (4.30-5.90); RDW 13.4 % (11.5-15.5); WBC 11.9 k/uL (3.8-10.6)
[2022-01-13 15:37] LABS: Partial Thromboplastin Time 27.1 sec (22.0-30.0)
[2022-01-13 15:38] LABS: Albumin 4.2 g/dL (3.5-5.0); Calcium 9.1 mg/dL (8.4-10.2); Potassium 4.4 mmol/L (3.5-5.1); Total Bilirubin 0.4 mg/dL (0.2-1.3)
[2022-01-13] MEDS ORDERED: KETOROLAC 15 MG/ML 1 ML VIAL IVP STA (16:39)
[2022-01-13] MEDS ORDERED: LIDOCAINE 5% PATCH TOPICAL SCH (16:45)
--- NOTE | 2022-01-13 16:45 | CT ---
EXAMINATION TYPE: CT abdomen pelvis wo con DATE OF EXAM: 01/13/2022 COMPARISON: 09/06/2020 HISTORY: Generalized weakness, nausea and diarrhea. CT DLP: 552.5 mGycm Automated exposure control for dose reduction was used. Images obtained from the diaphragm to the floor the pelvis with no contrast. Lung bases are clear. There is no pleural effusion. Heart size is normal. There is no pericardial eff usion. Liver spleen and stomach pancreas appear intact. Bile ducts are not dilated. There are clips from cho lecystectomy. There is no adrenal mass. Kidneys show normal size and contour. There is no hydronephrosis. Ureters a re not dilated. Bladder distends smoothly. There is no inguinal hernia. There is no free fluid in the pelvis. There is no mesenteric edema. There is no ascites or free air. There is no bowel obstruction. There i s atherosclerotic vascular calcification in the abdomen and pelvis. Appendix not clearly seen. No sig n of thickened appendix. There is multilevel posterior fusion surgery in the lumbar spine from L3 to S1. There is no lumbar co mpression fracture. There is degenerative disc space narrowing in the lumbar spine there is vacuum di sc at L3-4. There is disc prosthesis at L4-5 and L5-S1. The bony pelvis is intact. 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 IMPRESSION: No acute abnormality of the abdomen and pelvis. Atherosclerotic mild vascular disease. Nonobstructing 2 mm posterior left renal calculus. No adverse change compared to old exam.
[2022-01-13 17:28] LABS: Appearance,Urine Clear (Clear); Bilirubin,Urine Negative (Negative); Blood,Urine Negative (Negative); Color,Urine Yellow; Glucose,Urine (UA) Negative (Negative); Ketones,Urine Negative (Negative); Leukocyte Esterase,Urine Negative (Negative); Nitrite,Urine Negative (Negative); PH, Urine 5.5 (5.0-8.0); Protein,Urine Negative (Negative); Specific Gravity,Urine 1.019 (1.001-1.035); Urobilinogen,Urine <2.0 mg/dL (<2.0)
== END 2022-01-13 18:28 | disposition home or self-care (01) ==
LOC: EC 12:39
DX: S29.012A Strain of muscle and tendon of back wall of thorax, initial encounter (principal); N20.0 Calculus of kidney; Z20.822 Contact with and (suspected) exposure to COVID-19; I10 Essential (primary) hypertension; E78.5 Hyperlipidemia, unspecified; F41.9 Anxiety disorder, unspecified; F32.A Depression, unspecified; F17.200 Nicotine dependence, unspecified, uncomplicated; Z86.73 Personal history of transient ischemic attack (TIA), and cerebral infarction without residual deficits; Z79.82 Long term (current) use of aspirin; Z79.899 Other long term (current) drug therapy; Z79.01 Long term (current) use of anticoagulants; Z88.8 Allergy status to other drugs, medicaments and biological substances; X58.XXXA Exposure to other specified factors, initial encounter
CPT/HCPCS: 99284; 96374; 96375 ×3; 36415; 93005; 80053; 83605; 83690; 84484; 85025; 85610; 85730; 81003; 87635; 71046; 74176; J2405; J2270; J1885